=== PATIENT | female | born 1945 | race Caucasian/White ===

== ENCOUNTER 2018-02-09 18:56 | Outpatient (CLI) | payer MEDICARE, OTHER | END 2018-02-09 18:57 | disposition short-term general hospital (02) | LOC: EMS 18:56 | PROVIDERS: ATTEND Surgery | DX: R06.00 Dyspnea, unspecified (principal); R05 Cough | CPT/HCPCS: A0425; A0427 ==

== ENCOUNTER 2019-04-27 19:48 | Outpatient (CLI) | payer MEDICARE, OTHER | END 2019-04-27 19:49 | disposition short-term general hospital (02) | LOC: EMS 19:48 | PROVIDERS: ATTEND Surgery | DX: R07.89 Other chest pain (principal); R53.1 Weakness | CPT/HCPCS: A0425; A0429 ==

== ENCOUNTER 2022-03-03 09:24 | Outpatient (CLI) | payer MEDICARE, OTHER | END 2022-03-03 09:25 | disposition short-term general hospital (02) | LOC: EMS 09:24 | DX: S99.911A Unspecified injury of right ankle, initial encounter (principal); W18.39XA Other fall on same level, initial encounter; Y93.89 Activity, other specified; Y92.009 Unspecified place in unspecified non-institutional (private) residence as the place of occurrence of the external cause | CPT/HCPCS: A0425; A0429 ==

== ENCOUNTER 2022-05-24 11:07 | Outpatient (CLI) | payer MEDICARE, OTHER | END 2022-05-24 11:08 | disposition left against medical advice (07) | LOC: EMS 11:07 | DX: I95.9 Hypotension, unspecified (principal) ==

== ENCOUNTER 2022-08-27 09:45 | Outpatient (CLI) | payer MEDICARE, OTHER | END 2022-08-27 23:59 | disposition short-term general hospital (02) | LOC: EMS 09:45 | DX: S00.83XA Contusion of other part of head, initial encounter (principal); R42 Dizziness and giddiness; R29.6 Repeated falls; I95.9 Hypotension, unspecified; W18.39XA Other fall on same level, initial encounter; Y92.009 Unspecified place in unspecified non-institutional (private) residence as the place of occurrence of the external cause | CPT/HCPCS: A0425; A0427 ==

== ENCOUNTER 2023-06-26 22:17 | Outpatient (CLI) | payer MEDICARE, OTHER | END 2023-06-26 23:59 | disposition short-term general hospital (02) | LOC: EMS 22:17 | DX: M25.551 Pain in right hip (principal); S51.011A Laceration without foreign body of right elbow, initial encounter; W18.30XA Fall on same level, unspecified, initial encounter; Y92.009 Unspecified place in unspecified non-institutional (private) residence as the place of occurrence of the external cause; Z99.81 Dependence on supplemental oxygen | CPT/HCPCS: A0425; A0429 ==